=== PATIENT | male | born 1990 | race Caucasian/White ===

== ENCOUNTER 2017-11-18 10:04 | Emergency (ER) | payer OTHER ==
[~2017-11-18] VITALS: Ht 167.6 cm; Wt 86.2 kg
[2017-11-18] MEDS ORDERED: ASPI-1165 PO (10:12)
--- NOTE | 2017-11-18 10:20 | NUR ---
Dr Ramos at the bedside for MSE.
--- NOTE | 2017-11-18 10:38 | NUR ---
Patient discharged to home in stable conditon. Written and verbal after care instructions given. Patient verbalizes understanding of instructions.
[2017-11-18 10:39] VITALS: BP 120/71
== END 2017-11-18 10:39 | disposition home or self-care (01) ==
LOC: ER 10:04
DX: B95.8 Unspecified staphylococcus as the cause of diseases classified elsewhere (principal); Z79.82 Long term (current) use of aspirin; Z91.013 Allergy to seafood
CPT/HCPCS: A4663